=== PATIENT | female | born 1960 | race Caucasian/White ===

== ENCOUNTER 2025-04-13 18:17 | Emergency (ER) | payer BC, SELFPAY ==
[2025-04-13 18:27] VITALS: BP 195/114
[2025-04-13 18:45] LABS: Hematocrit 43.6 % (37.0-47.0); Hemoglobin 14.7 g/dL (12.0-16.0); Mean Corp Hgb Conc. 33.7 g/dL (33.0-37.0); Mean Corpuscular Volume 89.2 fL (81.0-99.0); Nucleated Red Blood Cells % 0 %; Platelet Count 250 10^3/uL (130-400); Red Cell Dist. Width 12.6 % (11.5-14.5)
[2025-04-13 18:59] LABS: ALT (SGPT) 50 U/L (0-35); AST (SGOT) 54 U/L (14-36); Albumin 4.8 g/dl (3.5-5.0); Alkaline Phosphatase 127 U/L (38-126); Blood Urea Nitrogen 12 mg/dl (7-17); Calcium 10.5 mg/dl (8.4-10.2); Carbon Dioxide 28 mmol/L (22-30); Chloride 102 mmol/L (98-107); Glucose 99 mg/dl (70-99); Potassium 4.1 mmol/L (3.5-5.1); Sodium 138 mmol/L (135-145); Total Protein 8.1 g/dl (6.3-8.2); eGFR > 60.00
[2025-04-14 01:34] VITALS: BP 200/113
[2025-04-14 01:37] VITALS: BP 209/105
[2025-04-14 01:56] VITALS: BP 180/93
--- NOTE | 2025-04-14 02:10 | ED.GENMED ---
History of Present Illness
General
Chief Complaint: Heart Rate Problem
Source: patient
Exam Limitations: none
Time Seen by Provider: 04/14/25 01:24
Nursing documentation reviewed up to this point in time: agreed with
History of Present Illness
History of Present Illness:
65-year-old female with a past medical history of hypothyroidism, hyperlipidemia, presents to the ER today with concerns of palpitations. She reports that this has been going on intermittently for the past 3 weeks. She never had anything like this
before. She reports that at times, she feels fluttering in her chest and feels like she can feel her heartbeat in her throat. She did not see her primary care provider for this. She is never been evaluated by her it data architect. She looks down at
her Apple Watch and noticed that her Apple Watch thought she could be in A-fib at the time. She denies chest pain or shortness of breath. She denies dizziness. She denies lightheadedness. She reports that her thyroid has been all over the place
recently and her thyroid medication was recently adjusted. She denies any syncopal episodes. She denies any fevers.
Review of Systems
Review of Systems
All Other Systems: ROS reviewed and negative except as documented in HPI and ROS
Phy Exam
Physical Exam
Physical Exam:
General: Patient is well appearing and in no acute distress; non-toxic
Skin: Warm and dry, no rashes or lesions
Head: Normocephalic, atraumatic
Eyes: Sclera non-icteric. EOMs intact.
Cardiac: Regular rate and rhythm, no murmurs
Peripheral Vascular: No lower extremity swelling or edema
Pulm: Normal respiratory effort, no wheezes, rales, or rhonchi
Abdomen: No abdominal tenderness to palpation
Neuro: CN II-XII intact, no focal neurologic deficits.
Psychiatric: Appropriate mood and affect.
Course
Orders/Labs/Results
Orders:
Orders
04/13/25 18:18
EKG [Electrocardiogram (*1)] Urgent
Reason for Study: Tachycardia
EKG- Treatment ONCE
04/13/25 18:37
Complete Blood Count/With Diff Urgent
Comprehensive Metabolic Panel Urgent
Magnesium Urgent
TSH Reflex To Free T4 Urgent
04/14/25 02:08
Add On- LAB Urgent
Tests Added?: magnesium
Abnormal Lab Results
04/13/25
18:37
Calcium 10.5 H mg/dl
(8.4-10.2)
AST 54 H U/L
(14-36)
ALT 50 H U/L
(0-35)
Alkaline Phosphatase 127 H U/L
(38-126)
04/13/25 18:37
04/13/25 18:37
Vital Signs
Initial and Last Documented VS:
Initial Vital Signs
Temp Pulse Resp BP Pulse Ox
98.1 F 88 18 195/114 99
04/13/25 18:27 04/13/25 18:27 04/13/25 18:27 04/13/25 18:27 04/13/25 18:27
Last Documented Vital Signs
Temp Pulse Resp BP Pulse Ox
98.1 F 77 15 175/86 97
04/13/25 18:27 04/14/25 03:00 04/14/25 03:00 04/14/25 03:00 04/14/25 02:45
MDM/Problems Addressed
Differential Diagnosis Includes:
Differentials include sinus tachycardia, atrial fibrillation, a flutter, SVT, symptomatic hypertension
MDM/Problems Addressed:
65-year-old female presents to the ER today with concerns of palpitations. She denies chest pain or shortness of breath. This has been going on intermittently for the past 3 weeks. Initially upon arrival to the ER, when she got in her room in the
ER, she refused cardiac monitoring and refused repeat EKG. After assessing patient she finally agreed to cardiac monitoring. She reports that she is starting to have the fluttering again. I observed cardiac monitoring when she started to have a
fluttering in her's no evidence of arrhythmia at this time. Her twelve-lead ECG shows no signs of ischemia, no signs of dysrhythmia, there are occasional PVCs which patient may feel. She reports that she does drink a lot of iced tea every day. I
recommended reducing caffeine intake. She also reports that she started a new supplement, cayenne pepper, for general wellness. She reports that she believes that this may be contributing to sensation as well. Patient was very hypertensive upon
arrival to the ER with her BP in the 200s. She is visibly anxious and had quivering of her lips and hands at this time. After discussing her results, and repeating her blood pressure, she appeared, her blood pressure came down. No chest pain at
this time. She does not take anything for her blood pressure and is reporting that she will check it at home and create a log and will call her primary care provider. Her sees Dr. Dick recommended calling Dr. Cook's office that she
can potentially get loop recorder done and determine the etiology of the arrhythmia. Her electrolytes are normal. Her magnesium is normal. Patient stable for discharge. Case discussed with ED attending.
*Pulse Oximetry
SaO2: 99
Oxygen Mode of Delivery: Room air
Patient hypoxic: no
*Critical Care Note
Total Time (30-74mins, 75-104mins- exclusive of procedures): Not Applicable
ED Attending Note
-
Portions of this chart may have been created with voice recognition software.� Occasional wrong word or��sound alike� substitutions may have occurred due to the inherent limitations of voice recognition software.
Discharge Plan
Departure
Patient Disposition: Home (Routine Discharge)
Date of Disposition: 04/14/25
Time of Disposition: 03:08
Patient with high blood pressure during this ER visit?: Yes
Condition: Good
Discharge Problem:
Palpitations
Instructions: Palpitations (DC), BLOOD PRESSURE
Referrals:
NONE,* [Family Provider, Internal Medicine]
Kush Cook MD [Active, Cardiology] - Call in 1-3 days for appt
Activity Restrictions/Additional Instructions:
Please follow-up with your primary care provider. Please call them tomorrow to schedule follow-up appointment. Please keep a log of your blood pressure. Please check your blood pressure once daily in the morning and write these values down.
Please call the attached number to you follow-up with cardiology, you will likely need a Holter monitor for further evaluation of your symptoms.
PLEASE RETURN TO ER SHOULD YOU DEVELOP CHEST PAIN, SHORTNESS OF BREATH, DIZZINESS, LIGHTHEADEDNESS, HEADACHE, OR ANY OTHER SIGNS OR SYMPTOMS WORRISOME TO YOU.
Interventions
Interventions:
*General Assessment Last Done: 04/13/25 18:27
*Neglect/Abuse Screening Last Done: 04/13/25 18:27
*ED COVID-19 Vaccine History Last Done: 04/13/25 18:27
*ED Influenza Vaccine History Last Done: 04/13/25 18:27
[facility] Risk Assessment Tool Last Done: 04/14/25 01:36
*Risk Screen - Suicide (C-SSRS) Last Done: 04/13/25 18:27
*Nursing Disposition Last Done: 04/14/25 03:15
ED- Cardiac Assessment Last Done: 04/14/25 02:35
ED- Pulmonary Assessment Last Done: 04/14/25 02:35
Discharge Date and Time
Discharge Date/Time: 04/14/25 03:15
Print Language: SLOVAK
[2025-04-14 02:30] VITALS: BP 165/81
[2025-04-14 02:59] LABS: Magnesium 2.1 mg/dl (1.6-2.3)
[2025-04-14 03:00] VITALS: BP 175/86
== END 2025-04-14 03:15 | disposition home or self-care (01) ==
LOC: EMR 18:17
PROVIDERS: Emergency Medicine; EMERGENCY PHYSICIAN Student in an Organized Health Care Education/Training Program
DX: R00.2 Palpitations (principal); I49.3 Ventricular premature depolarization; R03.0 Elevated blood-pressure reading, without diagnosis of hypertension; E78.5 Hyperlipidemia, unspecified; E03.9 Hypothyroidism, unspecified
CPT/HCPCS: 99284; 80053; 83735; 84443; 85025; 93005